=== PATIENT | female | born 1965 | race Hispanic/Latino ===

== ENCOUNTER 2023-08-27 07:52 | Outpatient (CLI) | payer OTHER | END 2023-08-27 07:53 | disposition home or self-care (01) | LOC: NM 07:52 | PROVIDERS: ATTEND Physician Assistant Medical | DX: K21.9 Gastro-esophageal reflux disease without esophagitis (principal); R10.10 Upper abdominal pain, unspecified; R11.0 Nausea; K14.6 Glossodynia | CPT/HCPCS: 78264; A9541 ==